=== PATIENT | female | born 1980 | race Caucasian/White ===

== ENCOUNTER 2018-03-28 18:10 | Emergency (ER) | payer BC, OTHER ==
--- NOTE | 2018-03-28 18:34 | UC ---
Complaint Female HPI - HPI Summary HPI Summary: 37 yo female presents with UTI symptoms. She tells me that she had intercourse 3 days ago and the next day developed urinary frequency and burning accompanied by vaginal discharge. She has not taken anything OTC. Denies fever, chills, abdominal pain, n/v/d/c, hematuria, or flank pain. - History Of Current Complaint Stated Complaint: POSS UTI Time Seen by Provider: 03/28/18 18:34 Hx Obtained From: Patient Hx Last Menstrual Period: 2 months Severity Initially: Mild Severity Currently: Mild Pain Intensity: 4 Pain Scale Used: 0-10 Numeric - Allergies/Home Medications Allergies/Adverse Reactions: Allergies Allergy/AdvReac Type Severity Reaction Status Date / Time No Known Allergies Allergy Verified 03/28/18 18:39 PMH/Surg Hx/FS Hx/Imm Hx - Additional Past Medical History Additional PMH: None Previously Healthy: Yes - Surgical History Surgical History: None - Family History Known Family History: Positive: None - Social History Occupation: Employed Full-time Lives: With Family Alcohol Use: Rare Substance Use Type: Marijuana Smoking Status (MU): Heavy Every Day Tobacco Smoker Type: Cigarettes Amount Used/How Often: 1 ppd Review of Systems Constitutional: Negative Skin: Negative Respiratory: Negative Cardiovascular: Negative Gastrointestinal: Negative Genitourinary: Dysuria, Frequency, Urgency, Vaginal/Penile Discharge Neurovascular: Negative Neurological: Negative Psychological: Negative All Other Systems Reviewed And Are Negative: Yes Physical Exam - Summary Physical Exam Summary: GENERAL: NAD. WDWN. No pain distress. SKIN: No rashes, sores, lesions, or open wounds. NECK: Supple. Nontender. No lymphadenopathy. CHEST: CTAB. No r/r/w. No accessory muscle use. Breathing comfortably and in no distress. CV: RRR. Without m/r/g. Pulses intact. Cap refill <2seconds ABDOMEN: Soft. NTTP. No distention or guarding. No CVA tenderness. Bowel sounds present NEURO: Alert. CN II-XII grossly intact. PSYCH: Age appropriate behavior. Triage Information Reviewed: Yes Vital Signs: Vital Signs: Temp Pulse Resp BP Pulse Ox 97.1 F 80 16 108/57 100 03/28/18 18:33 03/28/18 18:33 03/28/18 18:33 03/28/18 18:33 03/28/18 18:33 Laboratory Tests 03/28/18 19:20 POC Urine Color Dark yellow POC Urine Clarity Slightly cloudy POC Urine pH 6.0 POC Ur Specif Allen >= 1.030 POC Urine Protein Trace A POC Ur Glucose (UA) Negative POC Urine Ketones Negative POC Urine Blood Negative POC Urine Nitrite Negative POC Urine Bilirubin Negative POC Urine Urobilinogen 2.0 A POC U Leukocyte Esteras Trace A Vital Signs Reviewed: Yes Pelvic Exam: Positive: External Exam Normal, No Cerv. Motion Tender, No Masses, Discharge - Moderately thick yellow, Other - Richelle VEGA assisted with exam. Negative: Active Bleeding, Blood, Lesions, Mass, Tender w/ Cervical Motion, Ulcers Complaint Female Dx - Course Course Of Treatment: UA with signs of infection. Will treat with Macrobid. She elects to hold on treatment for vaginal discharge (suspected BV) and will wait for cultures to return. - Differential Dx/Diagnosis Provider Diagnoses: UTI. Vaginal Discharge Discharge - Sign-Out/Discharge Documenting (check all that apply): Patient Departure - Discharge Plan Condition: Stable Disposition: HOME Prescriptions: Nitrofurantoin Monohyd/M-Cryst [Macrobid 100 mg Capsule] 100 mg PO BID #10 cap Patient Education Materials: Bacterial Vaginosis (ED), Urinary Tract Infection in Women (DC) Referrals: Ezio Diaz MD [Primary Care Provider] - Additional Instructions: If you develop a fever, shortness of breath, chest pain, new or worsening symptoms - please call your PCP or go to the ED. - Billing Disposition and Condition Condition: STABLE Disposition: Home
[2018-03-28 18:38] VITALS: BP 108/57
[2018-03-28] MEDS ORDERED: Nitrofurantoin Macrocrystals* 50 MG CAP PO ONE (20:25)
== END 2018-03-28 20:45 | disposition home or self-care (01) ==
LOC: UCEAST 18:10
DX: N39.0 Urinary tract infection, site not specified (principal); F17.210 Nicotine dependence, cigarettes, uncomplicated; N89.8 Other specified noninflammatory disorders of vagina
CPT/HCPCS: 81003; 87086; 87480; 87491; 87510; 87591; 99202; A9270-GY; G0463